=== PATIENT | male | born 1980 | race Caucasian/White ===

== ENCOUNTER 2017-10-25 23:37 | Emergency (ER) | payer SELFPAY ==
[2017-10-25 23:42] VITALS: BP 122/62; BMI 23.9
[2017-10-25] MEDS ORDERED: MOTRIN TAB 800 MG PO ONE ×2 (23:50→23:56)
[2017-10-25] MEDS ORDERED: TYLENOL 500 MG TAB EXTRA STRENGTH PO ONE ×2 (23:55→23:56)
--- NOTE | 2017-10-26 00:34 | DR.URIAD ---
HPI - Time Seen Time seen: 00:00 - Complaint Chief Complaint:: PT C/O FEVER, BODYACHES, CHILLS, CONGESTION, SORE THROAT, EARACHE. ONSET THIS AM Self Treatment fo Chief Complaint: TYLENOL @ 1100 THIS AM - Source History Provided: Patient - Mode of Arrival Mode of Arrival: Ambulatory - Timing Onset of Chief Complaint: 10/25/17 PMH - PMH Past Medical History: No (no contrib PMH) Past Surgical History: No - Family History History of Family Medical Conditions: No - Social History Do you use any recreational Drugs:: No - infectious screening Have you traveled outside the country in the last 6 months?: No ROS - Review of Systems Constitutional: Chills, Fever, Malaise, Fatigue Eyes: No Symptoms Reported ENTM: Throat Pain Respiratoy: Non-Productive Cough Cardiovascular: No Symptoms Reported Gastrointestinal/Abdominal: No Symptoms Reported Genitourinary: No Symptoms Reported Neurological: Headache Musculoskeletal: Joint Pain, Muscle Pain (diffuse) Integumentary: No Symptoms Reported Hematologic/Lymphatic: No Symptoms Reported Endocrine: No Symptoms Reported Psychiatric: No Symptoms Reported All Other Systems: Reviewed and Negative PE - Vital Signs Vitals: Temperature 102 F Pulse Rate 120 Respiratory Rate 18 Blood Pressure 122/62 O2 Sat by Pulse Oximetry 98 - General Limitations: No Limitations General Appearance: Alert, In No Apparent Distress - Head Head Exam: Normal Inspection - Eyes Eye exam: Normal Appearance - ENT ENT Exam: Normal Exam Throat Exam: Tonsillar Erythema. negative: Tonsillar Exudate - Neck Neck Exam: Normal Inspection, Full ROM, Trachea Midline. negative: Tenderness, Meningismus, Lymphadenopathy - Respiratory Respiratory Exam: Normal Lung Sounds Bilat Respiratory Exam: Bilateral Clear to Auscultation - Cardiovascular Cardiovascular Exam: Regular Rate, Tachycardia, Normal Heart Sounds - Abdominal Exam Abdominal Exam: Normal Inspection, Normal Bowel Sounds, Soft. negative: Tenderness - Extremeties Extremities Exam: Normal Inspection - Neurologic Neurological Exam: Alert, Oriented X3 - Psychiatric Psychiatric Exam: Normal Affect, Normal Mood - Skin Skin Exam: Warm, Dry, Intact ROR - Labs Reviewed Laboratory Results Reviewed?: Yes (flu - strep -) - Diagnosis Discharge Problem: Flu-like symptoms - Discharge Plan Disposition: 01 HOME, SELF-CARE Condition: Stable - Follow ups/Referrals Follow ups/Referrals: NFD,None [Primary Care Provider] - 3 days - Instructions
== END 2017-10-26 01:02 | disposition home or self-care (01) ==
LOC: ER 23:46
DX: J06.9 Acute upper respiratory infection, unspecified (principal)
CPT/HCPCS: 87502; 87651; 99282

== ENCOUNTER 2017-10-29 01:11 | Emergency (ER) | payer SELFPAY ==
[2017-10-29 01:17] VITALS: BP 129/69; BMI 24.7
[2017-10-29] MEDS ORDERED: SOLU-Medrol 40 MG VIAL IM ONE (01:59)
--- NOTE | 2017-10-29 02:00 | DR.GENAD ---
HPI - PCP Primary Care Physician: NONE - Complaint/Symptoms Chief Complaint Doctors Comments: He states that he feels like his throat is closing. Onset was since yesterday morning. He has sore throat. He was seen here on 10/25/17, and his testing had included Influenza A/B abd rapid strep. All of this were negative. Chief Complaint:: "MY THROAT IS SORE, I CAN'T TALK AND I FEEL LIKE MY THROAT IS CLOSING UP" Self Treatment fo Chief Complaint: NONE - Nurses notes reviewed Nurses Notes Review: Yes - Source History Provided: Patient - Mode of Arrival Mode of Arrival: Ambulatory - Timing Onset of Chief Complaint: 10/29/17 Came on: Gradually PMH - PMH Past Medical History: No Past Surgical History: No - Family History History of Family Medical Conditions: No - Social History Does patient currently use any type of tobacco product: No Have you used tobacco products in the last 12 months: No Type of Tobacco Use: None Does any household member use tobacco: No Alcohol Use: None Do you use any recreational Drugs:: No Lives With: Family Lives Where: Home - infectious screening In the last 2 months have you had wt loss of >10#?: NO Have you had fever, night sweats or hemotysis?: No Have you traveled outside the country in the last 6 months?: No Isolation: Standard ROS - Review of Systems Constitutional: No Symptoms Reported Eyes: No Symptoms Reported ENTM: Throat Pain, Throat Swelling Respiratoy: No Symptoms Reported Cardiovascular: No Symptoms Reported Gastrointestinal/Abdominal: No Symptoms Reported Genitourinary: No Symptoms Reported Neurological: No Symptoms Reported Musculoskeletal: No Symptoms Reported Integumentary: No Symptoms Reported Hematologic/Lymphatic: No Symptoms Reported Endocrine: No Symptoms Reported Psychiatric: No Symptoms Reported All Other Systems: Reviewed and Negative PE - Vital Signs Vitals: Temperature 98.6 F Pulse Rate 80 Respiratory Rate 18 Blood Pressure 129/69 O2 Sat by Pulse Oximetry 98 - General Limitations: No Limitations General Appearance: Alert, In No Apparent Distress - Head Head Exam: Normal Inspection - Eyes Eye exam: Normal Appearance - ENT External Ear Exam: Normal External Inspection TM/Canal Exam: Bilateral Normal Mouth Exam: Normal Inspection Throat Exam: Other (pharyngeal erythema with no exudate, hoarse voice.) - Neck Neck Exam: Normal Inspection - Chest Chest Inspection: Normal Inspection - Respiratory Respiratory Exam: Normal Lung Sounds Bilat - Cardiovascular Cardiovascular Exam: Regular Rate, Normal Rhythm - Abdominal Exam Abdominal Exam: Normal Inspection, Normal Bowel Sounds, Soft - Extremities Extremities Exam: Normal Inspection - Back Back Exam: Normal Inspection - Neurologic Neurological Exam: Alert, Oriented X3 - Psychiatric Psychiatric Exam: Normal Affect, Normal Mood - Skin Skin Exam: Warm, Dry, Intact, Normal Color ROR - XRAY XRAY Interpreted by: Self (no STS noted on the cervical films) - Diagnosis Discharge Problem: Laryngitis - Discharge Plan Disposition: HOME, SELF-CARE Condition: Stable - Follow ups/Referrals Follow ups/Referrals: NFD,None [Primary Care Provider] - 3 days - Instructions
[2017-10-29] MEDS ORDERED: BENADRYL CAP/TAB 25 MG PO ONE (02:05)
[2017-10-29] MEDS ORDERED: ZANTAC PO ONE ×2 (02:06→02:13)
[2017-10-29] MEDS ORDERED: SOLU-Medrol 40 MG VIAL ONE (02:13)
--- NOTE | 2017-10-29 02:46 | RAD ---
Neck soft tissue, AP and lateral Indication: Difficulty swallowing, throat swelling Comparison: None Findings: The upper airways are grossly patent. No significant retropharyngeal soft tissue prominence or gas. There are mild discogenic and uncovertebral degenerative changes at the C5-6. Impression: Unremarkable appearance of the neck soft tissues. 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 Reported By:
== END 2017-10-29 03:17 | disposition home or self-care (01) ==
LOC: ER 01:11
DX: J04.0 Acute laryngitis (principal)
CPT/HCPCS: 70360; 96372; 99282; 99283; J2920